=== PATIENT | female | born 1985 | race Two or more races ===

== ENCOUNTER 2016-11-03 09:55 | Emergency (ER) | payer MEDICAID ==
[2016-11-03] MEDS: ORPHENADRINE CITRATE 60 MG/2ML IM ONE (10:52)
[2016-11-03] MEDS: KETOROLAC TROMETHAMINE 60 MG/2 ML VIAL IM ONE (10:53)
[2016-11-03 11:13] VITALS: BP 110/78
--- NOTE | 2016-11-03 14:30 | ED Physician Documentation ---
Low Back Pain - HISTORIAN Historian: patient - HPI Stated Complaint: Right Hip/Back Pain Chief Complaint: Low Back Pain/ Injury Additional Information: no hx of injury History: history of chronic pain:, back pain Onset: days ago (1) Duration: continues in ED Recent Injury: No Context: denies: lifting, turning, bending, fall, near-fall, trauma Where: home Other Injuries: back Severity: mild Quality: similar- prior back pain Front/Back of Body, Lg (Color): 1 - pain Associated Symptoms: other (none) Worsened By:: other (movement) Relieved By: nothing Further Comments: no - ROS CONST: no problems CVS/RESP: none EYES/ENT: none MS/SKIN/LYMPH: none Neuro/Psych: none GI/: denies: abdominal pain, black stools - PAST HX Past History: other (none) Other History: other (anxiety) Surgeries/Procedures: none Immunizations: referred to PCP Allergies/Adverse Reactions: Allergies Allergy/AdvReac Type Severity Reaction Status Date / Time nitrofurantoin Allergy Verified 11/03/16 10:06 [From Macrobid] nitrofurantoin Allergy Verified 11/03/16 10:06 macrocrystalline [From Macrobid] sulfamethoxazole Allergy Verified 11/03/16 10:06 [From Bactrim] trimethoprim [From Bactrim] Allergy Verified 11/03/16 10:06 - SOCIAL HX Smoking History: cigarettes Alcohol Use: none Drug Use: none - FAMILY HX Family History: no significant history - VITAL SIGNS Vital Signs: Vital Signs Temp Pulse Resp BP Pulse Ox 97.1 F L 88 18 110/78 99 11/03/16 09:55 11/03/16 11:05 11/03/16 11:05 11/03/16 11:05 11/03/16 11:05 - REVIEWED ASSESSMENTS Nursing Assessment Reviewed: Yes Vitals Reviewed: Yes Progress - Results/Orders Results/Orders: no testing ordered - Progress Progress: pt. given 60 mg each of Toradol and Norflex Im in ER Critical Care Note - Critical Care Note Total Time (mins): 0 ED Results Lab/Radiology - Lab Results Lab Results: none ordered - Radiology Radiology Impressions: none ordered - Orders Orders: ED Orders Category Date Time Status Ketorolac Tromethamine [Toradol] Med 11/03/16 10:52 Discontinued 60 mg IM NOW ONE Orphenadrine Citrate [Norflex] Med 11/03/16 10:52 Discontinued 60 mg IM NOW ONE Low Back Pain/Injury - Physical Exam General Appearance: no acute distress, alert EENT: eye inspection normal, ENT inspection normal, pharynx normal, no signs of dehydration, KALI Neck: non-tender, painless ROM Resp/CVS: chest non-tender, breath sounds nml, heart sounds nml, no resp. distress, lungs clear, reg. rate & rhythm Abdomen: non-tender, no organomegaly Back: muscle spasm (right L5 area). No: vertebral point-tendernes, CVA tenderness Straight Leg Raising: Positive Right Neuro/Psych: oriented x3, motor nml, sensation nml, bilat. doriflexion nml, reflexes nml, mood/affect nml Skin: warm/dry, normal color Extremities: non-tender, normal range of motion, no evidence of injury, no edema Discharge Clincal Impression: Lumbar strain Qualifiers: Encounter type: initial encounter Qualified Code(s): S39.012A - Strain of muscle, fascia and tendon of lower back, initial encounter Referrals: Primary Doctor,No [Primary Care Provider] - 2 Days Comments: Discharged in stable condition to home with script for Parafon Forte DSC 500 mg 1 p.o. qid #20, Meloxicam 7.5 mg 1 p.o. bid #10. Condition: Stable Disposition: 01 HOME, SELF-CARE Decision to Admit: NO Decision Time: 11:00
== END 2016-11-03 11:05 | disposition home or self-care (01) ==
LOC: ED 09:55
DX: S39.012A Strain of muscle, fascia and tendon of lower back, initial encounter (principal); X58.XXXA Exposure to other specified factors, initial encounter; Y93.9 Activity, unspecified; Y99.9 Unspecified external cause status
CPT/HCPCS: J1885; J2360; 96372; 99283